=== PATIENT | male | born 1975 | race Caucasian/White ===

== ENCOUNTER 2024-10-10 01:15 | Day surgery (SDC) | payer OTHER, SELFPAY ==
[2024-10-07 11:13] VITALS: BMI 25.1
--- NOTE | 2024-10-07 11:14 | PC.NURSE ---
Report to the Outpatient Waiting Room, entrance under the green pavilion located off [facility], at time _1000_ on date _[id number]_. Planned Procedure Time: _1200_.? Time changes happen often and if your time is changed the preop area will call you the afternoon before. - You and your visitor will be asked to self-screen and do not enter if you have any COVID symptoms. Please call surgeon if you need to reschedule. - A mask is optional within the hospital at this time. Patients may have clear liquids (water, carbonated beverages, clear teas, apple juice) until 3 hours prior to surgery with a maximum of 20 ounces. - No food from midnight until time of surgery and no smoking, or chewing tobacco (or any form of nicotine). No chewing gum, candy or mints. Take only the following medications with a SIP of water on the morning of surgery: __None DO NOT STOP ANY OF YOUR OTHER PRESCRIPTION MEDICATIONS PRIOR TO SURGERY EXCEPT THE FOLLOWING Hold all vitamins and supplements for 3 days per anesthesiologist. Medications to discontinue per physician Date to take last vlnw__[id number]____ Please no make-up, nail mexican, hairspray, perfume, deodorant, or body powder the day of surgery.? No jewelry (including any body piercings) or valuables the day of surgery, leave them at home.? Please take a shower or bath the night before, or the morning of, surgery with an antibacterial soap.? Wear comfortable, loose fitting clothing.? - Jewelry must be removed prior to entering the operating room.? Rings and piercings that are not removed may be cut off. - The hospital will not accept responsibility for valuables.? - Please leave all valuables, including medications, at home the day of surgery. If you are going home after surgery, a licensed test car driver must drive you home.? - NO public transportation without another adult if you receive anesthesia. - We recommend that an adult stay with you for 24 hours following discharge. - We also recommend that you do not drive, make important decision, drink alcoholic beverages, or take any drugs that were not prescribed by your health care provider for at least 24 hours after your discharge time. Follow any additional instructions given to you from your surgeon. Telephone instructions given to __Matt___and asked if any additional questions and then verbalized understanding. Patient advised to call surgeon office or pre surgery nurse liaison [phone] if any additional questions.
--- OUTSIDE RECORDS SUMMARY | 2024-10-10 01:18 | XMS_ITS | Clinical Summary ---
Author Organization [facility] Care Team Providers Care Administrator Social Welfare Name Role Phone Unavailable Primary Care Provider Unavailabl e Social History Tobacco Use Types Packs/Day Years Used Date Smoking Tobacco: Never Assessed Sex and Gender Information Value Date Recorded Sex Assigned at Not on file Legal Sex Male 2:30 PM [employer] Gender Identity Not on file Sexual Orientation Not on file Plan of Treatment Health Maintenance Due Date Last Done Comments Hepatitis C Virus (HCV) Screening 1975 TdaP Immunization 1975 Hepatitis B Immunization (1 of 3 - 19+ 3-dose series) 12/23/1994 Colonoscopy 12/23/2020 Colorectal Cancer Screening 12/23/2020 Influenza Immunization (#1) 2024 SARS-COV-2 Immunization ( season) 2024 10/12/2020, 09/21/2020 Respiratory Syncytial Virus (RSV) Immunization (Adult) (1 - 1-dose 75+ series) 12/23/2050 Meningococcal Immunization (ACWY) Aged Out No longer eligible b ased on patient's age to complete this topic Pneumococcal Immunization Combined Aged Out No longer eligible b ased on patient's age to complete this topic Rotavirus Immunization Aged Out No lo nger eligible based on patient's age to complete this topic
--- NOTE | 2024-10-10 11:01 | P.PNAN_ITS ---
Anes - Initial Pre Proc Eval Procedure: Operation Date: 10/10/24 12:00 Proposed Procedures p Excision Vocal Cord Lesion - Maxx Bah MD Date/Time: 10/10/24 11:01 Surgeon: Maxx Bah MD Pre Op Diagnosis: Lesion Vocal Cord, Dysphagia, Patient Data Age: 48 Gender: M Height: 1.78 m Weight: 79.5 kg Allergies Allergy/AdvReac Type Severity Reaction Status Date / Time No Known Allergies Allergy Verified 10/07/24 11:06 Home Medications ?Medication ?Instructions ?Recorded ?Confirmed ?Type omeprazole 20 mg capsule,delayed 20 mg PO QHS #14 caps 09/16/24 10/07/24 Rx release multivitamin (Daily Multi-Vitamin 1 tablet PO DAILY 10/07/24 10/07/24 History tablet) Patient hx anesthesia problems: none Family hx anesthesia problems: none Results Review: All pre-operative results and documents have been reviewed as part of the pre- operative evaluation. [facility] Social History Social History Smoking packs per day: 1 Smoking cigarettes per day: 20.0 Years smoked: 15 Smoking pack-years: 15.00 Smoking status: Former smoker Tobacco type: cigarettes Smoking end date: 10/07/09 Alcohol intake: current Drinks per week: 5 Living arrangements: with family Spiritual care concerns: No Anes - Eval Final PreProcedure Day of Procedure 10/10/24 11:01 Patient weight: normal Heart: regular rate and rhythm Lungs: clear to auscultation Airway: Mallampati scale class III Neurological: alert and oriented Last oral intake: >/= 8 hours ASA classification: I Emergent: no Anesthetic plan: proceed Anesthesia type and monitoring: general ETT and standard monitoring Results Review: All pre-operative results and documents have been reviewed as part of the pre- operative evaluation. Informed Consent: The patient's anesthetic plan and its attendant risks and benefits were discussed with the patient/family/POA. Questions were solicited and answers provided to the satisfaction of the patient/family/POA.
[2024-10-10 11:13] VITALS: BP 124/75; PULSE 73; TEMP 36.5; O2SAT 98; BMI 25.5
[2024-10-10] MEDS: LACTATED RINGERS 1,000 ML 30 ML IV CONT (11:15)
--- NOTE | 2024-10-10 11:27 | WPDHPUPDATE1 ---
History and Physical Update Update Date/Time: 10/10/24 11:27 History and Physical has been reviewed, including an updated exam of the patient. There are NO changes in the patient's condition. Risks, benefits, and alternatives have been discussed and questions answered. Patient agrees to proceed with procedure.
[2024-10-10] MEDS: ceFAZolin 2 GM/D5W 50 ML 2 GM/50 ML BAG IVPB (11:47)
[2024-10-10] MEDS: OXYMETAZOLINE HCL 0.05% NAS 15 ML BTL (*BKC) 1 SPRAY XX (12:02)
--- NOTE | 2024-10-10 12:04 | S_PTH ---
PATIENT: Doni Astudillo LOC: [facility] U#:[id number] AGE/SX: 48/M ROOM: RE10/10/[address]: Maxx Bah MD : 1975 BED: DIS: 10/10/2024 SPEC #: [id number] RECD: 10/10/24 12:58 STATUS: MUSTAPHA JAQUEZ #: [id number] FABRICE: 10/10/24 12:[address]: Maxx Bah DEPT: [facility] Surgical RECD BY: Jonny Gerber ENTERED: 10/10/24 12:59 SP TYPE: Surgical OTHR DR: TECHNOLOGY PROFESSIONAL PHYSICIAN Tissues: A - Vocal Cord Biopsy Procedures: Lutz Keratin Hematoxylin and Eosin Stain Gross and Microscopic Level 4 CD45 CD 34
[2024-10-10 12:19] VITALS: BP 105/66; PULSE 83; RESP 16; TEMP 36.3; O2SAT 99
--- NOTE | 2024-10-10 12:29 | W.PM.PROC2 ---
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 Patient brought back to the operating. Time-out performed. General anesthesia induced endotracheal tube secured. Patient prepped draped position procedure confirmed 2nd time-out performed. Dedo laryngoscope brought to the field direct laryngoscopy performed after maxillary tooth mouth guard was placed. Left vocal cord process lesion seen biopsy x2 with up-biting cup forceps laryngoscopic biopsy forceps. Bleeding controlled with application of Afrin-soaked pledgets x3. No bleeding at the end of the procedure all instruments and pledgets were accounted for Dedo laryngoscope removed maxillary tooth mouth guard removed. Care the patient given Anesthesiology. I performed all dictated portions procedure no complications patient taken to PACU. Estimated Blood Loss 1 Drains No Packing No Pathology Yes Complications No immediate complications Condition Stable Disposition PACU [facility] Billing Surgery - Charge Forward: Surgery Billing
[2024-10-10 12:30] VITALS: BP 111/68; PULSE 86; RESP 15; O2SAT 97
[2024-10-10 12:45] VITALS: BP 102/77; PULSE 78; RESP 18; O2SAT 98
[2024-10-10 12:51] VITALS: BP 121/85; PULSE 81; RESP 20
[2024-10-10 13:20] VITALS: BP 121/80; PULSE 73; RESP 20
== END 2024-10-10 13:23 | disposition home or self-care (01) ==
PROVIDERS: Visit Provider Otolaryngology
PROC: (CPT 40810; principal; 2024-10-10 12:00)
DX: J38.3 Other diseases of vocal cords (principal); L98.0 Pyogenic granuloma; Z87.891 Personal history of nicotine dependence
CPT/HCPCS: 31535; 88305; 88342; A9270; J0690; J1100; J2003; J2004; J2250; J2405; J2704; J3010; J7120